=== PATIENT | male | born 1965 ===

== ENCOUNTER 2024-02-06 17:02 | Emergency (ER) | payer SELFPAY | END 2024-02-06 18:26 | disposition home or self-care (01) | LOC: DL.ED 17:02 | DX: S61.210A Laceration without foreign body of right index finger without damage to nail, initial encounter (principal); S91.112A Laceration without foreign body of left great toe without damage to nail, initial encounter; W25.XXXA Contact with sharp glass, initial encounter | CPT/HCPCS: 99282 ==